=== PATIENT | female | born 1970 | race Caucasian/White ===

== ENCOUNTER 2016-12-13 10:07 | Emergency (ER) | payer OTHER ==
[2016-06-11 10:05] VITALS: BMI 37.1
[~2016-12-13 10:07] MED LIST: CYCLOBENZAPRINE10 MG PO; MOBIC7.5 MG PO; POTASSIUM CITRA5 MEQ PO; SKELAXIN800 MG PO; ULTRAM50 MG PO
== END 2016-12-13 11:15 | disposition home or self-care (01) ==
LOC: D.ER 10:07
DX: J02.0 Streptococcal pharyngitis (principal); M06.9 Rheumatoid arthritis, unspecified

== ENCOUNTER 2016-12-23 09:13 | Emergency (ER) | payer OTHER ==
[2016-06-11 10:05] VITALS: BMI 37.1
== END 2016-12-23 10:05 | disposition home or self-care (01) ==
LOC: D.ER 09:13
DX: J01.90 Acute sinusitis, unspecified (principal)

== ENCOUNTER 2017-05-16 02:34 | Emergency (ER) | payer OTHER, MEDICAID ==
[2016-06-11 10:05] VITALS: BMI 37.1
== END 2017-05-16 03:33 | disposition home or self-care (01) ==
LOC: D.ER 02:34
DX: J02.9 Acute pharyngitis, unspecified (principal)

== ENCOUNTER 2017-05-20 05:55 | Day surgery (SDC) | payer OTHER, MEDICAID ==
[~2017-05-20] VITALS: Ht 152.4 cm; Wt 82.6 kg
[~2017-05-20 05:55] MED LIST changes: +HUMIRA20 MG/0.4 SQ
[2017-05-20 07:20] VITALS: BP 135/87; Ht 152.4 cm; Wt 82.6 kg
[2017-05-20 08:07] LABS: HEMATOCRIT 46.5 % (36.0-48.0); HEMOGLOBIN 15.3 g/dL (12-16); MCH 29.3 pg (26.0-34.0); MCHC 32.9 g/dL (31.0-37.0); MCV 88.9 fL (80.0-100.0); RBC 5.23 10x6/uL (4.00-5.40); RDW 13.7 % (11.5-14.5); WBC 7.7 10x3/uL (4.8-10.8)
--- NOTE | 2017-05-20 13:56 | NUR ---
1350 DC INSTS. REVIEWED VOICED UNDERSTANDING, RELEASED IN WC WITH ESCORT.
--- NOTE | 2017-05-20 13:56 | NUR ---
LE 1345 IV DC'D WITH CATH INTACT.
== END 2017-05-20 13:55 | disposition home or self-care (01) ==
LOC: D.OPS 05:55 → D.PAN 10:15 → D.OPS 13:30 → D.PAN 13:30 → D.OPS 13:55
PROVIDERS: Anesthesiology
DX: M65.311 Trigger thumb, right thumb (principal); M65.321 Trigger finger, right index finger; K21.9 Gastro-esophageal reflux disease without esophagitis; Z01.812 Encounter for preprocedural laboratory examination

== ENCOUNTER → 2017-08-02 | Emergency (ER) | payer OTHER, MEDICAID ==
[2017-05-20 07:20] VITALS: BMI 35.6
== END | disposition home or self-care (01) ==
LOC: D.ER 17:17
DX: M25.572 Pain in left ankle and joints of left foot (principal)

== ENCOUNTER 2017-08-29 19:41 | Emergency (ER) | payer OTHER, MEDICAID ==
[2017-05-20 07:20] VITALS: BMI 35.6
[2017-08-29 20:46] LABS: APPEARANCE CLEAR (CLEAR); BILIRUBIN NEGATIVE (NEGATIVE); COLOR YELLOW (YELLOW); GLUCOSE NEGATIVE (NEGATIVE); KETONE NEGATIVE (NEGATIVE); NITRITE NEGATIVE (NEGATIVE); PROTEIN NEGATIVE (NEGATIVE); SPECIFIC GRAVITY 1.025 (1.005-1.020); UROBILINOGEN NORMAL (NORMAL)
[2017-08-29 20:50] LABS: BACTERIA MODERATE /hpf (NONE SEEN); EPITHELIAL CELLS 0-5 /hpf (0-5); RED CELLS - URINE 0-5 /hpf (0-5)
[2017-08-29 22:28] LABS: BASOPHILS 0.2 % (0-2); EOSINOPHILS 0.8 % (0-7); HEMATOCRIT 40.1 % (36.0-48.0); HEMOGLOBIN 13.5 g/dL (12-16); IMMATURE GRANULOCYTES 0.2 % (0-5); LYMPHOCYTES 40.3 % (15-50); MCH 29.3 pg (26.0-34.0); MCHC 33.7 g/dL (31.0-37.0); MEAN PLATELET VOLUME 10.8 fL (7.4-10.4); MONOCYTES 6.4 % (2-11); NEUTROPHILS 52.1 % (40-80); PLATELET COUNT 237 10x3/uL (130-400); RBC 4.61 10x6/uL (4.00-5.40); RDW 13.3 % (11.5-14.5); WBC 10.2 10x3/uL (4.8-10.8)
[2017-08-29 22:35] LABS: CALC OSMOLALITY 278 mosm/kg (275-300); CALCIUM 8.2 mg/dL (8.5-10.1); CARBON DIOXIDE 27.3 mmol/L (21.0-32.0); CHLORIDE - SERUM 106 mmol/L (98-107); CREATININE - SERUM 0.8 mg/dL (0.6-1.3); GLUCOSE 97 mg/dL (74-106); POTASSIUM - SERUM 3.7 mmol/L (3.5-5.1); SODIUM 139 mmol/L (136-145); UREA NITROGEN 16 mg/dL (7-18); eGFR NON AFRICAN AMERICAN 82 mL/min (90-120)
== END 2017-08-29 23:05 | disposition home or self-care (01) ==
LOC: D.ER 19:41
PROVIDERS: Emergency Medicine; Nurse Practitioner Acute Care
DX: N39.0 Urinary tract infection, site not specified (principal)

== ENCOUNTER 2017-09-16 08:18 | Day surgery (SDC) | payer OTHER, MEDICAID ==
[2017-09-16 08:54] LABS: HEMATOCRIT 43.8 % (36.0-48.0); HEMOGLOBIN 14.7 g/dL (12-16); MCH 29.3 pg (26.0-34.0); MCHC 33.6 g/dL (31.0-37.0); MCV 87.3 fL (80.0-100.0); MEAN PLATELET VOLUME 10.4 fL (7.4-10.4); RBC 5.02 10x6/uL (4.00-5.40); RDW 12.9 % (11.5-14.5); WBC 7.5 10x3/uL (4.8-10.8)
[2017-09-16 09:01] VITALS: BP 142/76; BMI 36.9
[2017-09-16] MEDS ORDERED: HYDROCODONE-APA1 TAB PO (10:25)
--- NOTE | 2017-09-16 12:22 | NUR ---
IV DC WITH CATHER TIP INTACT
--- NOTE | 2017-09-16 15:13 | OP ---
PATIENT NAME: CINTHIA MORALES MEDICAL RECORD: [id number] :72 LOCATION:[facility] ADMISSION DATE: SURGEON: EDER KRISHNA MD DATE OF OPERATION: 09/16/2017 PREOPERATIVE DIAGNOSIS: Carpal tunnel syndrome of the right wrist. POSTOPERATIVE DIAGNOSIS: Carpal tunnel syndrome of the right wrist. PROCEDURE: Right carpal tunnel release. SURGEON: Eder Krishna MD ANESTHESIA: General. INTRAOPERATIVE COMPLICATIONS: None. SUMMARY OF PATHOLOGIC FINDINGS: The patient had a very tight transverse carpal ligament consistent with the preoperative diagnosis. OPERATIVE SUMMARY IN DETAIL: After obtaining the appropriate preoperative orthopedic surgery consent as well as anesthetic consultation, evaluation and clearance, the patient was brought to the operating room and placed on the operating table in supine position. After general laryngeal mask airway was administered, tourniquet was placed about the proximal aspect of the right upper extremity. Right upper extremity was then prepped and draped in a routine sterile fashion. The arm was elevated and exsanguinated, tourniquet inflated to 250 mmHg. Routine mid palmar incision was made in line with the fourth metacarpal. This was taken down to the level of the transverse carpal ligament, which was identified. A small incision was made in the transverse carpal ligament. The median nerve was identified and it was then covered with the [place] elevator. At this point, the entire transverse carpal ligament was incised under direct visualization while both looking and protecting the median nerve. Having completed this, wound was then irrigated and closed with 4-0 Prolene in a combination of simple and mattress stitches. The area was locally infiltrated with 0.25% Marcaine and lidocaine mixture, both plain. Having completed this, sterile dressings were applied. Tourniquet was deflated. The patient was awakened and taken to the recovery room in stable condition. All final needle and sponge counts were correct. TRANSINT:[id number] Voice Confirmation ID: [id number] DOCUMENT ID: [id number] EDER KRISHNA MD at 1513 CC: [id number] DICTATION DATE: 09/16/17 1024 FACILITY SERVICE ASSOCIATE: 09/16/17 1046 [facility] 09/16/17 [place] [address]
== END 2017-09-16 12:34 | disposition home or self-care (01) ==
LOC: D.OPS 08:18 → D.PAN 10:30 → D.OPS 10:30 → D.PAN 10:45 → D.OPS 12:20
PROVIDERS: Anesthesiology
DX: G56.01 Carpal tunnel syndrome, right upper limb (principal); K21.9 Gastro-esophageal reflux disease without esophagitis; E66.9 Obesity, unspecified; Z01.812 Encounter for preprocedural laboratory examination

== ENCOUNTER 2017-11-17 11:22 | Emergency (ER) | payer OTHER, MEDICAID ==
[~2017-11-17 11:22] MED LIST changes: +HYDROCODONE-APA1 TAB PO
== END 2017-11-17 13:46 | disposition home or self-care (01) ==
LOC: D.ER 11:22
DX: J02.9 Acute pharyngitis, unspecified (principal)

== ENCOUNTER 2017-11-25 06:10 | Emergency (ER) | payer OTHER, MEDICAID | END 2017-11-25 07:41 | disposition home or self-care (01) | LOC: D.ER 06:10 | DX: J06.9 Acute upper respiratory infection, unspecified (principal) ==

== ENCOUNTER 2018-02-21 21:18 | Emergency (ER) | payer MEDICAID ==
[2018-02-21 22:26] LABS: BASOPHILS 0.2 % (0-2); EOSINOPHILS 0.5 % (0-7); HEMATOCRIT 42.6 % (36.0-48.0); HEMOGLOBIN 14.4 g/dL (12-16); IMMATURE GRANULOCYTES 0.2 % (0-5); LYMPHOCYTES 31.2 % (15-50); MCHC 33.8 g/dL (31.0-37.0); MCV 85.9 fL (80.0-100.0); MONOCYTES 6.1 % (2-11); NEUTROPHILS 61.8 % (40-80); PLATELET COUNT 243 10x3/uL (130-400); RBC 4.96 10x6/uL (4.00-5.40); RDW 12.9 % (11.5-14.5); WBC 12.7 10x3/uL (4.8-10.8)
[2018-02-21 22:32] LABS: ALBUMIN 3.6 g/dL (3.4-5.0); ALKALINE PHOSPHATASE 91 U/L (46-116); ALT (SGPT) 37 U/L (10-68); BILIRUBIN - TOTAL 0.31 mg/dL (0.2-1.3); CALC OSMOLALITY 274 mosm/kg (275-300); CALCIUM 8.7 mg/dL (8.5-10.1); CARBON DIOXIDE 26.7 mmol/L (21.0-32.0); CHLORIDE - SERUM 102 mmol/L (98-107); CREATININE - SERUM 0.8 mg/dL (0.6-1.3); GLUCOSE 105 mg/dL (74-106); POTASSIUM - SERUM 3.8 mmol/L (3.5-5.1); PROTEIN - SERUM 7.7 g/dL (6.4-8.2); SODIUM 137 mmol/L (136-145); UREA NITROGEN 15 mg/dL (7-18); eGFR NON AFRICAN AMERICAN 82 mL/min (90-120)
[2018-02-21 22:43] LABS: CKMB 0.3 U/L (0.0-3.6); CREATINE KINASE 46 UL (21-215)
[2018-02-21 22:47] LABS: TROPONIN-I < 0.017 ng/mL (0.000-0.060)
[2018-02-21 23:38] LABS: APPEARANCE CLEAR (CLEAR); BILIRUBIN NEGATIVE (NEGATIVE); COLOR YELLOW (YELLOW); GLUCOSE NEGATIVE (NEGATIVE); KETONE NEGATIVE (NEGATIVE); NITRITE NEGATIVE (NEGATIVE); PROTEIN NEGATIVE (NEGATIVE); UROBILINOGEN NORMAL (NORMAL)
[2018-02-21 23:39] LABS: EPITHELIAL CELLS 0-5 /hpf (0-5); RED CELLS - URINE 0-5 /hpf (0-5); WHITE CELLS - URINE 0-5 /hpf (0-5)
[2018-02-21 23:40] LABS: BACTERIA FEW /hpf (NONE SEEN)
== END 2018-02-21 23:59 | disposition home or self-care (01) ==
LOC: D.ER 21:18
PROVIDERS: Family Medicine; Physician Assistant Medical
DX: R07.89 Other chest pain (principal); N39.0 Urinary tract infection, site not specified

== ENCOUNTER → 2018-03-04 09:04 | Outpatient (CLI) | payer MEDICAID, OTHER ==
--- NOTE | ~2018-03-04 | EC ---
PATIENT:CINTHIA MORALES DATE OF SERVICE: 03/04/18 SEX: F MEDICAL RECORD: [id number] DATE OF : 72 [facility] AGE OF PATIENT: 47 ADMISSION DATE: 03/04/18 REFERRING PHYSICIAN: INTERPRETING PHYSICIAN: TRAVIS PULLIAM MD ECHOCARDIOGRAM REPORT ECHO CHARGES 4 ECHO COMPLETE Date: 03/04 CLINICAL DIAGNOSIS: CHEST PAIN ECHOCARDIOGRAPHIC MEASUREMENTS (adult normal given) AC root (d.<3.7cm) 3.0 cm LV Septum d (<1.2 cm> 1.4 cm Valve Excursion 1.8 cm LV Septum (systole) 1.6 cm Left Atria (s.<4.0cm> 3.7 cm LVPW d(<1.2cm) 1.4 cm RV (d.<2.3cm) 2.7 cm LVPW (sytole) 1.6 cm LV diastole(<5.6CM) 4.3 cm MV E-F(>70mm/sec) cm LV systole 3.1 cm LVOT Diameter 1.8 cm MV exc.(>10mm) 1.8 cm Est.ejection fraction (50-75%) % DOPPLER: LVIT cm/sec A 66.0 cm/sec E 82.0 cm/sec LA cm/sec RVSP 34 mmHg LVOT 104 cm/sec AOP1/2T m/s Asc. Ao 126 cm/sec RVOT 80 cm/sec RA cm/sec PA 98 cm/sec AV Gradient Peak 6.33 mmHg AV Mean 3.46 mmHg AV Area 1.9 cm MV Gradient Peak 3.88 mmHg MV Mean 1.64 mmHg MV Area cm COMMENTS: Marketing Communications Coordinator: 2 GUY HAYWOOD Welder Oxyhydrogen: 4 Dr. Pulliam TAPE# PACS Pericardial Effusion N DATE OF SERVICE: PROCEDURE: Transthoracic echocardiogram. FINDINGS: 1. Left ventricle is normal size, normal function. Inflow characteristics are normal. There are no regional wall motion abnormalities. Ejection fraction is 60%. 2. The left atrium is normal shape, normal size, and normal function. 3. The aortic valve is a trileaflet structure and normal. ECHOCARDIOGRAM REPORT [id number] CINTHIA MORALES 4. The mitral valve is normal structurally, has [id number] mitral regurgitation. 5. The tricuspid valve has mild tricuspid regurgitation. Normal structurally. 6. The pericardium is normal. 7. The RVSP is normal. 8. The right ventricle and right atrium are normal size, normal shape, normal structure, and normal function. CONCLUSIONS: This is a normal echocardiogram for the patient's stated age. TRANSINT:[id number] Voice Confirmation ID: [id number] DOCUMENT ID: [id number] TRAVIS PULLIAM MD at 0741 CC: [id number] DICTATION DATE: 03/14/18 1045 SUPERVISOR RESPIRATORY: 03/14/18 1224 DEP CLI 03/04/18 [address] [place] [address]
== END | disposition home or self-care (01) ==
LOC: D.ECHO 09:04
DX: R07.9 Chest pain, unspecified (principal)

== ENCOUNTER 2018-03-17 06:36 | Outpatient (CLI) | payer MEDICAID, OTHER ==
[~2018-03-17] VITALS: Ht 152.4 cm; Wt 88.2 kg
--- NOTE | ~2018-03-17 | HEMODYNAMI ---
PATIENT:CINTHIA MORALES MEDICAL RECORD: [id number] : 72 LOCATION:D.CAT ADMISSION DATE: 03/17/18 Generatedon:03/17/20189:41 Patient name: CINTHIA MORALES Patient #: [id number] SSN: : 1970 Date of study: 03/17/2018 Page: Of Hemodynamic Procedure Report Patient Data Patient Demographics Procedure consent was obtained First Name: CINTHIA Gender: Female Last Name: CARMEN : 1970 [facility] Initial: J Age: 47 year(s) Patient #: [id number] Race: Unknown Additional ID: [id number] Contact details Address: [address] [place] [address] State: [place] City: [facility] Zip code: [address] Admission Admission Data Admission Date: 03/17/2018 Admission Time: 6:36 Height (in.): 60 BSA: 1.87 (m2) Height (cm.): 152.4 BMI: 39.06 (kg/m2) Weight (lbs.): 200 Weight (kg.): 90.72 Lab Results Lab Result Date: 03/17/2018 Lab Result Time: 0:00 Biochemistry Name Units Result Min Max BUN mg/dl 11 --(-*--)-- 7 18 Creatinine mg/dl 0.6 --(*---)-- 0.6 1.3 CBC Name Units Result Min Max Hemoglobin g/dl 14.5 --(*---)-- 13.5 17.5 Procedure Procedure Types Cath Procedure Diagnostic Procedure C [facility] w/Coronaries Sedation Charges Moderate Sedation up to 15 minutes Procedure Description Procedure Date Procedure Date: 03/17/2018 Procedure Start Time: 9:27 Procedure End Time: 9:37 Procedure Staff Name Function Addison Acosta MD Performing Physician Bessy Lozada RT Monitor Rojelio Sofia RN Nurse Merlyn Glasgow RT Scrub Procedure Data Cath Procedure Fluoroscopy Diagnostic fluoroscopy Total fluoroscopy Time: 2.3 time: 2.3 min min Diagnostic fluoroscopy Total fluoroscopy dose: 812 dose: 812 mGy mGy Contrast Material Contrast Material Type Amount (ml) Isovue 300 62 Entry Location Entry Primary Successful Side Size Upsize Upsize Entry Closure Wolfe ccessful Closure Location (Fr) 1 (Fr) 2 (Fr) Remarks Device Remarks Radial Right 6 Fr Mechanical TR artery Short Compression Estimated blood loss: 10 ml Diagnostic catheters Device Type Used For End Catheter Placement DIAGNOSTIC Raritan 110cm 5 Procedure Fr catheter ([id number]) Procedure Complications No complications Procedure Medications Medication Administration Route Dosage Oxygen etCO2 Nasal cannula 2 l/min Heparin Flush Bag added to field 2 bags (1000units/500ml NS) 0.9% NaCl I.V. 100 ml/hr Radial Cocktail added to field 1 syringe (Verapomil 2mg/Nitro 400mcg/Heparin 1500units) Fentanyl I.V. 50 mcg Versed I.V. 1 mg Fentanyl I.V. 50 mcg Versed I.V. 1 mg Radial Cocktail I.A. 1 syringe (Verapomil 2mg/Nitro 400mcg/Heparin 1500units) Hemodynamics Rest BSA: 1.87 (m2) HGB: 14.5 (g/dl) O2 Consumption: Estimated: 185.02 (ml/min) O2 Co nsumption indexed: Estimated:98.94 (ml/min/m) Heart Rate: 69 (bpm) Pressure Samples Time Site Value (mmHg) Purpose Heart Use Rate(bpm) 9:33 LV 152/12,15 Snapshot 86 9:33 LV 197/58,39 EDP 88 Snapshots Pre Cath Intra NCS Post Cath Vital Signs Time Heart Resp SPO2 etCO2 NIBP (mmHg) Rhythm Pain Sedation Rate (ipm) (%) (mmHg) Status Level (bpm) 9:09:30 68 19 98 0 152/87(134) NSR 0 (11) 10(A) , No pain 9:13:46 72 17 97 36.6 154/98(119) NSR 0 (11) 10(A) , No pain 9:18:00 75 16 94 39.6 143/93(122) NSR 0 (11) 10(A) , No pain 9:22:14 77 16 95 41.1 145/91(105) NSR 0 (11) 9(A) , No pain 9:26:34 77 17 95 42.6 134/87(107) NSR 0 (11) 9(A) , No pain 9:30:48 90 15 93 40.3 138/90(115) NSR 0 (11) 9(A) , No pain 9:35:04 91 15 93 40.3 155/89(122) NSR 0 (11) 9(A) , No pain 9:39:20 76 16 97 40.3 156/87(125) NSR 0 (11) 9(A) , No pain Medications Time Medication Route Dose Verified Delivered Reason Notes Effectiveness by by 9:10:35 Oxygen etCO2 2 l/min Addison Rojelio Per Nasal Dave Sofia RN physician cannula 9:10:42 Heparin Flush added 2 bags Addison Rojelio used for Bag to Dave Sofia RN procedure (1000units/500ml field FU NS) 9:10:49 0.9% NaCl I.V. 100 Addison Rojelio Per ml/hr Dave Sofia RN physician MD 9:10:57 Radial Cocktail added 1 Addison Rojelio used for (Verapomil to syringe Dave Sofia RN procedure 2mg/Nitro field FU 400mcg/Heparin 1500units) 9:19:27 Fentanyl I.V. 50 mcg Addison Rojelio for sedation Dave Sofia RN, MD 9:19:34 Versed I.V. 1 mg Addison Rojelio for sedation Dave Sofia RN, MD 9:21:54 Fentanyl I.V. 50 mcg Addison Rojelio for sedation Dave Sofia RN, MD 9:21:58 Versed I.V. 1 mg Addison Rojelio for sedation Dave Sofia RN, MD 9:28:18 Radial Cocktail I.A. 1 Addison Addison for (Verapomil syringe Dave Acosta MD vasodilation 2mg/Enrique FU 400mcg/Heparin 1500units) Procedure Log Time Note 8:51:07 Merlyn Glasgow RT(R) sent for patient. Start room use. 8:57:44 Patient Height : 60 inches 8:57:48 Patient Weight : 200 lbs 9:00:31 Lab Result : BUN 11 mg/dl 9:00:31 Lab Result : Creatinine 0.6 mg/dl 9:00:31 Lab Result : Hemoglobin 14.5 g/dl 9:01:05 Diagnostic Cath status Elective 9:01:08 Time tracking: Regular hours (M-F 7:00 - 5:00) 9:01:13 Plan of Care:Hemodynamics will remain stable., Cardiac rhythm will remain stable., Comfort level will be maintained., Respiratory function will remain adequate., Patient/ family verbilizes understanding of procedure., Procedure tolerated without complication., Recovers from procedure without complications.. 9:01:22 Patient received from Pre/Post Procedure Room to [facility] 2 Alert and oriented. Tansferred to table in Supine position. 9:01:24 Warm blankets applied, and nisa hugger turned on for patient comfort. 9:04:49 Correct patient and procedure confirmed by team. 9:04:50 Signed procedure consent form obtained from patient. 9:04:51 ECG and BP/O2 sat monitors applied to patient. 9:08:09 Vital chart was started 9:08:22 Baseline sample Acquired. 9:08:27 Rhythm: sinus rhythm 9:08:28 Full Disclosure recording started 9:08:31 H&P Date Dictated: 03/17/2018 Within 30 days and on chart., H&P Addendum completed by physician on day of procedure. (MUST COMPLETE FOR ALL OUTPATIENTS). 9:08:33 Pre-procedure instructions explained to patient. 9:08:33 Pre-op teaching completed and patient verbalized understanding. 9:08:35 Family in patients room. 9:08:36 Patient NPO since Midnight. 9:08:40 Is the patient allergic to Iodine/contrast media? No. 9:08:41 Was the patient premedicated? No 9:08:42 Is patient on blood thinner?Yes 9:08:47 ACC The patient was administered the following blood thiners within the last 24 hours: ACCPlavix 9:08:49 Patient diabetic? No. 9:08:51 Previous problem with sedation/anesthesia? No ? 9:08:53 Snore? Yes 9:08:54 Sleep apnea? No 9:08:54 Deviated septum? No 9:08:55 Opens mouth fully? Yes 9:08:56 Sticks out tongue? Yes 9:08:58 Airway obstruction? No ? 9:09:03 Dentures? No ? 9:09:06 Pre procedure: right dorsailis pedis pulse 2+ Normal; easily identifiable; not easily obliterated 9:09:08 Pre procedure: left dorsailis pedis pulse 2+ Normal; easily identifiable; not easily obliterated 9:09:10 Patient pain scale 0/10 ?. 9:09:15 IV patent on arrival in left forearm with 0.9% NaCl at [facility]. 9:09:17 Lab results completed and on chart. 9:09:21 Right Radial & Right Groin area was prepped with chlora-prep and draped in sterile fashion 9:: Alarms reviewed by R. N. 9:: Sharps counted by scrub and verified by R.N. 9:10:35 Oxygen 2 l/min etCO2 Nasal cannula was administered by Rojelio Sofia RN; Per physician; 9:10:41 Physician paged 9:10:42 Heparin Flush Bag (1000units/500ml NS) 2 bags added to field was administered by Rojelio Sofia RN; used for procedure; 9:10:49 0.9% NaCl 100 ml/hr I.V. was administered by Rojelio Sofia RN; Per physician; 9:10:57 Radial Cocktail (Verapomil 2mg/Nitro 400mcg/Heparin 1500units) 1 syringe added to field was administered by Rojelio Sofia RN; used for procedure; 9:18:36 Physician arrived 9:18:36 --------ALL STOP TIME OUT------ 9:18:37 Final Timeout: patient, procedure, and site verified with staff and physician. All members of the team are in agreement. 9:18:40 Right Radial & Right Groin site verified by team. 9:18:48 Sedation plan: IV Moderate Sedation Medication:Versed, Fentanyl 9:18:53 Baseline sample Acquired. 9:19:27 Fentanyl 50 mcg I.V. was administered by Rojelio Sofia RN; for sedation; 9:19:34 Versed 1 mg I.V. was administered by Rojelio Sofia RN; for sedation; 9:21:54 Fentanyl 50 mcg I.V. was administered by Rojelio Sofia RN; for sedation; 9:21:58 Versed 1 mg I.V. was administered by Rojelio Sofia RN; for sedation; 9:24:30 Procedure started. 9:24:44 Use device set Femoral Dx 9:24:45 ACIST Syringe (60377) opened to sterile field. 9:24:46 Bag Decanter () opened to sterile field. 9:24:47 Medline Cath Pack ([id number]) opened to sterile field. 9:24:48 DIAGNOSTIC WIRE .035 260cm J wire (962605) opened to sterile field. 9:24:49 ACIST Hand Control (54960) opened to sterile field. 9:24:49 ACIST Manifold (34583) opened to sterile field. 9:26:05 Zero performed for pressure channel P1 9:27:52 Local anesthetic to right radial artery with Lidocaine 2% by Addison Acosta MD.INITIAL ACCESS ONLY 9:28:02 A 6 Fr Short sheath was inserted into the Right Radial artery 9:28:18 Radial Cocktail (Verapomil 2mg/Nitro 400mcg/Heparin 1500units) 1 syringe I.A. was administered by Addison Acosta MD; for vasodilation; 9:28:30 A DIAGNOSTIC Raritan 110cm 5 Fr catheter (852787) was advanced over the wire and used for Procedure. 9:31:20 LCA angiography performed. 9:33:41 LV gram done using MENESES 9:33:47 RCA angiography performed. 9:34:36 Catheter removed. 9:34:44 TR BAND Standard ([id number]) opened to sterile field. 9:35:13 Sheath removed intact; hemostasis achieved with Mechanical Compression to the Right Radial artery. 9:35:16 Procedure ended.(Physican Out) 9:35:26 Fluoroscopy time 02.30 minutes. 9:35:30 Fluoroscopy dose: 812 mGy 9:35:30 Flurop Dose total: 812 9:35:34 Contrast amount:Isovue 300 62ml. 9:35:36 Sharps counted by scrub and verified by R.N. 9:35:39 TR band inflated with 13cc of air. 9:35:43 Insertion/operative site no bleeding no hematoma. 9:35:47 Post Procedure Pulses reassessed and unchanged 9:35:51 Post-procedure physical assessment completed. ASA score P 2 - A patient with mild systemic disease as per Addison Acosta MD. 9:35:57 Post procedure rhythm: unchanged. 9:36:00 Estimated blood loss: 10 ml 9:36:09 Post procedure instruction explained to patient.Patient verbalizes understanding. 9:36:32 Procedure type changed to Cath procedure, Diagnostic procedure, LHC, LHC w/Coronaries, Sedation Charges, Moderate Sedation up to 15 minutes 9:36:33 Procedure and supply charges have been captured, reviewed, submitted and are correct. 9:37:36 Procedure Complication : No complications 9:37:40 Vital chart was stopped 9:37:45 Report given to Pre/Post Procedure Room. 9:37:49 Patient transfered to Pre/Post Procedure Room with Stretcher. 9:37:51 Procedure ended. 9:37:51 Full Disclosure recording stopped 9:38:00 End room use (Document Last) Device Usage Item Name Manufacture Quantity Catalog Hospital Part Current Minimal L ot# / Number Charge Number Stock Stock Serial# Code ACIST Acist 1 53103 612816 474742 285500 20 Syringe Medical (38394) Systems Inc Bag Microtek 1 2001S 203040 68862 141423 5 Decanter Medical Inc. () Medline Cardinal 1 [id number] 627530 57663 303385 5 Cath Sinnet ([id number]) DIAGNOSTIC St Sivakumar 1 517320 546179 238597 779133 30 WIRE .035 260cm J wire (602839) ACIST Hand Acist 1 57247 212228 503673 593695 5 Control Medical (03256) Systems Inc ACIST Acist 1 06361 081387 535509 723153 5 Manifold Medical (42334) Systems Inc DIAGNOSTIC Terumo 1 40-0283 875665 359542 855817 5 Raritan 110cm 5 Fr catheter (694417) TR BAND Terumo 1 [id number] 647961 765293 176859 40 Standard ([id number]) Signature Audit Noble Stage Time Signature Unsigned Intra-Procedure 03/17/2018 Bessy Lozada 9:41:03 AM RT(R) Signatures Monitor : Bessy Lozada Signature : RT Date : Time : [address] [place] [address]
[2018-03-17 07:32] VITALS: BP 142/89; Ht 152.4 cm; Wt 88.2 kg
[2018-03-17 07:49] LABS: BASOPHILS 0.3 % (0-2); EOSINOPHILS 0.6 % (0-7); HEMATOCRIT 42.4 % (36.0-48.0); HEMOGLOBIN 14.5 g/dL (12-16); IMMATURE GRANULOCYTES 0.3 % (0-5); LYMPHOCYTES 32.2 % (15-50); MCH 29.2 pg (26.0-34.0); MCHC 34.2 g/dL (31.0-37.0); MCV 85.3 fL (80.0-100.0); MEAN PLATELET VOLUME 10.6 fL (7.4-10.4); NEUTROPHILS 58.6 % (40-80); PLATELET COUNT 231 10x3/uL (130-400); RBC 4.97 10x6/uL (4.00-5.40); RDW 13.1 % (11.5-14.5); WBC 7.8 10x3/uL (4.8-10.8)
[2018-03-17 08:04] LABS: CALC OSMOLALITY 274 mosm/kg (275-300); CALCIUM 8.4 mg/dL (8.5-10.1); CARBON DIOXIDE 23.8 mmol/L (21.0-32.0); CHLORIDE - SERUM 103 mmol/L (98-107); CREATININE - SERUM 0.6 mg/dL (0.6-1.3); GLUCOSE 100 mg/dL (74-106); POTASSIUM - SERUM 4.1 mmol/L (3.5-5.1); SODIUM 138 mmol/L (136-145); UREA NITROGEN 11 mg/dL (7-18); eGFR NON AFRICAN AMERICAN > 90 mL/min (90-120)
== END 2018-03-17 12:00 | disposition home or self-care (01) ==
LOC: D.CATH 06:36
PROVIDERS: Internal Medicine Cardiovascular Disease
DX: I25.10 Atherosclerotic heart disease of native coronary artery without angina pectoris (principal); Z01.812 Encounter for preprocedural laboratory examination

== ENCOUNTER → 2018-05-09 22:07 | Outpatient (CLI) | payer MEDICAID, OTHER ==
[2018-03-17 07:32] VITALS: BMI 37.9
[~2018-05-09 22:07] MED LIST changes: +NORCO 7.5/325 T1 TA1 PO
[2018-05-09 22:39] LABS: CHOL - HDL RATIO 8.3 ratio (2.3-4.1); LDL-HDL RATIO 5.2 ratio (1.5-3.5)
== END | disposition home or self-care (01) ==
LOC: D.LABREF 22:07
PROVIDERS: Internal Medicine Cardiovascular Disease
DX: E78.5 Hyperlipidemia, unspecified (principal)

== ENCOUNTER 2018-05-10 12:19 | Emergency (ER) | payer MEDICAID, OTHER ==
[~2018-05-10] VITALS: Ht 152.4 cm; Wt 85.9 kg
[~2018-05-10 12:19] MED LIST changes: -NORCO 7.5/325 T1 TA1 PO
[2018-05-10 12:25] VITALS: Ht 152.4 cm; Wt 85.9 kg
[2018-05-10] MEDS ORDERED: NORCO 7.5/325 T1 TA1 PO (16:03)
[2018-05-10] MEDS ORDERED: CYCLOBENZAPRINE10 MG PO (16:03)
[2018-05-10 16:31] VITALS: BP 128/71
== END 2018-05-10 16:28 | disposition home or self-care (01) ==
LOC: D.ER 12:19
DX: R51 Headache (principal)

== ENCOUNTER → 2018-06-07 16:29 | Outpatient (CLI) | payer MEDICAID, OTHER ==
[2018-05-10 12:25] VITALS: BMI 36.9
[~2018-06-07 16:29] MED LIST changes: +ALTACE2.5 MG PO; +ENBREL50 MG/ML SQ; +LIPITOR20 MG PO; +NORCO 7.5/325 T1 TA1 PO
[2018-06-07 17:23] LABS: CHOL - HDL RATIO 7.4 ratio (2.3-4.1); LDL-HDL RATIO 5.2 ratio (1.5-3.5)
== END | disposition home or self-care (01) ==
LOC: D.LABREF 16:29
PROVIDERS: Internal Medicine Cardiovascular Disease
DX: E78.5 Hyperlipidemia, unspecified (principal)

== ENCOUNTER → 2018-06-28 19:55 | Outpatient (CLI) | payer MEDICAID, OTHER ==
[2018-05-10 12:25] VITALS: BMI 36.9
== END | disposition home or self-care (01) ==
LOC: D.MAMMO 06-22 15:30
DX: Z12.31 Encounter for screening mammogram for malignant neoplasm of breast (principal)

== ENCOUNTER 2018-07-22 07:45 | Day surgery (SDC) | payer MEDICAID, OTHER ==
[2018-07-21 09:22] LABS: BASOPHILS 0.3 % (0-2); EOSINOPHILS 0.1 % (0-7); HEMOGLOBIN 14.2 g/dL (12-16); IMMATURE GRANULOCYTES 0.1 % (0-5); LYMPHOCYTES 32.5 % (15-50); MCH 29.2 pg (26.0-34.0); MCHC 33.8 g/dL (31.0-37.0); MCV 86.2 fL (80.0-100.0); MEAN PLATELET VOLUME 10.4 fL (7.4-10.4); MONOCYTES 7.2 % (2-11); NEUTROPHILS 59.8 % (40-80); PLATELET COUNT 222 10x3/uL (130-400); RBC 4.87 10x6/uL (4.00-5.40); RDW 13.5 % (11.5-14.5); WBC 7.6 10x3/uL (4.8-10.8)
[2018-07-21 09:34] LABS: CALC OSMOLALITY 275 mosm/kg (275-300); CALCIUM 8.5 mg/dL (8.5-10.1); CARBON DIOXIDE 28.7 mmol/L (21.0-32.0); CHLORIDE - SERUM 103 mmol/L (98-107); CREATININE - SERUM 0.7 mg/dL (0.6-1.3); GLUCOSE 97 mg/dL (74-106); POTASSIUM - SERUM 4.7 mmol/L (3.5-5.1); SODIUM 138 mmol/L (136-145); UREA NITROGEN 13 mg/dL (7-18); eGFR NON AFRICAN AMERICAN > 90 mL/min (90-120)
[~2018-07-22] VITALS: Ht 152.4 cm; Wt 89.8 kg
--- NOTE | ~2018-07-22 | OP ---
PATIENT NAME: CINTHIA MORALES MEDICAL RECORD: [id number] :72 LOCATION:D.OPS ADMISSION DATE: SURGEON: HELADIO CMAPOS MD DATE OF OPERATION: 07/22/2018 PREOPERATIVE DIAGNOSES: 1. Left neck mass. 2. Hypercholesterolemia. 3. Hypertension. POSTOPERATIVE DIAGNOSES: 1. Left neck mass. 2. Hypercholesterolemia. 3. Hypertension. PROCEDURE: Excision of left neck mass (4 cm likely lipoma). SURGEON: Heladio Campos MD REPORT OF PROCEDURE: The patient's left neck was prepped and draped in sterile fashion. An oblique incision was made overlying the fatty mass. Electrocautery was used to dissect through the subcutaneous tissues. We immediately encountered this fatty collection of tissue. I tried in all planes to try and figure out if there was a true lipoma present, but appeared to just be a large fat pad. I began taking it out in pieces and trying to smooth out the tissue. There were some vascular structures present within it and these were ligated with silk ties. As we continued down, the fat pad continued deep into the patient's neck and towards the chest and shoulder. As we dissected, there was irritation to the nervous tissue and I was concerned we may be getting close to the brachial plexus. At this point, I just shaved off the remaining top side of the fatty tissue and sent it off for permanent specimen. I inspected the wound and assured there was no sign of any active bleeding. The wound was then irrigated out thoroughly with normal saline. The subcutaneous tissues were then reapproximated with interrupted 3-0 Vicryl and the skin was closed with running subcutaneous 5-0 Monocryl. A 10 mL of 0.25% Marcaine with epinephrine were infused into the surrounding tissues and the wound was dressed appropriately. COMPLICATIONS: None. CONDITION: Stable. ANESTHESIA: General endotracheal and local. BLOOD LOSS: Minimal. TRANSINT:[id number] Voice Confirmation ID: [id number] DOCUMENT ID: [id number] OPERATIVE REPORT [id number] ANTHONY MORALESEN Erwin HELADIO CAMPOS MD at 2258 CC: RAMILA LUCERO [id number] DICTATION DATE: 07/22/18 1043 RECYCLABLE MATERIALS COLLECTOR: 07/22/18 1049 [facility] 07/22/[address] [address]
[2018-07-22 08:19] VITALS: BP 130/83; Ht 152.4 cm; Wt 89.8 kg
[2018-07-22] MEDS ORDERED: HYDROCODONE-APA1 TAB PO (10:34)
== END 2018-07-22 12:35 | disposition home or self-care (01) ==
LOC: D.OPS 07:45 → D.PAN 10:00 → D.OPS 12:35 → D.PAN 14:00
PROVIDERS: Surgery
DX: D17.0 Benign lipomatous neoplasm of skin and subcutaneous tissue of head, face and neck (principal); Z01.812 Encounter for preprocedural laboratory examination; E78.00 Pure hypercholesterolemia, unspecified; I10 Essential (primary) hypertension

== ENCOUNTER → 2018-11-18 08:36 | Outpatient (CLI) | payer MEDICAID, OTHER ==
[2018-07-22 08:19] VITALS: BMI 38.7
[2018-11-18 09:12] LABS: ALBUMIN 3.2 g/dL (3.4-5.0); BILIRUBIN - DIRECT 0.1 mg/dL (0.00-0.30); BILIRUBIN - INDIRECT 0.12 mg/dL (0.00-1.00); BILIRUBIN - TOTAL 0.22 mg/dL (0.2-1.3); PROTEIN - SERUM 7.2 g/dL (6.4-8.2)
== END | disposition home or self-care (01) ==
LOC: D.LAB 08:15 → D.US 08:30 → D.LAB 08:36 → D.NM 09:00
PROVIDERS: Internal Medicine Gastroenterology
DX: R11.2 Nausea with vomiting, unspecified (principal); R10.9 Unspecified abdominal pain

== ENCOUNTER 2019-06-11 13:42 | Emergency (ER) | payer OTHER ==
[~2019-06-11] VITALS: Ht 152.4 cm; Wt 95.9 kg
[2019-06-11 13:44] VITALS: Ht 152.4 cm; Wt 95.9 kg
[2019-06-11 14:10] LABS: BASOPHILS 0.1 % (0-2); EOSINOPHILS 0.5 % (0-7); HEMATOCRIT 41.6 % (36.0-48.0); HEMOGLOBIN 14.2 g/dL (12-16); IMMATURE GRANULOCYTES 0.2 % (0-5); LYMPHOCYTES 22.4 % (15-50); MCH 28.9 pg (26.0-34.0); MCHC 34.1 g/dL (31.0-37.0); MCV 84.7 fL (80.0-100.0); MEAN PLATELET VOLUME 10.1 fL (7.4-10.4); MONOCYTES 5.9 % (2-11); NEUTROPHILS 70.9 % (40-80); RBC 4.91 10x6/uL (4.00-5.40); RDW 13.4 % (11.5-14.5); WBC 8.3 10x3/uL (4.8-10.8)
[2019-06-11 14:14] LABS: PLATELET COUNT 280 10x3/uL (130-400)
[2019-06-11 14:21] LABS: APPEARANCE CLEAR (CLEAR); BILIRUBIN NEGATIVE (NEGATIVE); COLOR YELLOW (YELLOW); GLUCOSE NEGATIVE (NEGATIVE); KETONE NEGATIVE (NEGATIVE); NITRITE NEGATIVE (NEGATIVE); PROTEIN TRACE mg/dL (NEGATIVE); SPECIFIC GRAVITY 1.025 (1.005-1.020); UROBILINOGEN NORMAL (NORMAL)
[2019-06-11 14:22] LABS: RED CELLS - URINE 0-5 /hpf (0-5); WHITE CELLS - URINE 0-5 /hpf (0-5)
[2019-06-11 14:23] LABS: BACTERIA MODERATE /hpf (NONE SEEN)
[2019-06-11 16:17] LABS: ALBUMIN 3.2 g/dL (3.4-5.0); ALKALINE PHOSPHATASE 91 U/L (46-116); ALT (SGPT) 49 U/L (10-68); BILIRUBIN - TOTAL 0.32 mg/dL (0.2-1.3); CALC OSMOLALITY 280 mosm/kg (275-300); CALCIUM 8.7 mg/dL (8.5-10.1); CARBON DIOXIDE 26.9 mmol/L (21.0-32.0); CHLORIDE - SERUM 104 mmol/L (98-107); CREATININE - SERUM 0.8 mg/dL (0.6-1.3); POTASSIUM - SERUM 3.4 mmol/L (3.5-5.1); PROTEIN - SERUM 6.7 g/dL (6.4-8.2); SODIUM 139 mmol/L (136-145); UREA NITROGEN 10 mg/dL (7-18); eGFR NON AFRICAN AMERICAN 81 mL/min (90-120)
[2019-06-11 16:21] LABS: GLUCOSE 165 mg/dL (74-106)
[2019-06-11 16:25] LABS: AMYLASE - SERUM 31 U/L (25-115); LIPASE 149 U/L (73-393)
[2019-06-11 16:28] LABS: TROPONIN-I < 0.017 ng/mL (0.000-0.060)
[2019-06-11] MEDS ORDERED: TORADOL10 MG PO (16:52)
[2019-06-11] MEDS ORDERED: ZOFRAN8 MG PO (16:52)
[2019-06-11 17:36] VITALS: BP 141/81
== END 2019-06-11 17:37 | disposition home or self-care (01) ==
LOC: D.ER 13:42
PROVIDERS: Family Medicine
DX: R10.11 Right upper quadrant pain (principal)

== ENCOUNTER 2019-06-22 05:53 | Day surgery (SDC) | payer OTHER ==
[2019-06-21 14:50] LABS: HEMATOCRIT 41.6 % (36.0-48.0); HEMOGLOBIN 13.9 g/dL (12-16); MCH 28.3 pg (26.0-34.0); MCHC 33.4 g/dL (31.0-37.0); MCV 84.7 fL (80.0-100.0); MEAN PLATELET VOLUME 10.7 fL (7.4-10.4); RBC 4.91 10x6/uL (4.00-5.40); RDW 13.4 % (11.5-14.5); WBC 8.3 10x3/uL (4.8-10.8)
[2019-06-21 16:48] LABS: CALC OSMOLALITY 274 mosm/kg (275-300); CALCIUM 8.5 mg/dL (8.5-10.1); CHLORIDE - SERUM 102 mmol/L (98-107); CREATININE - SERUM 0.5 mg/dL (0.6-1.3); POTASSIUM - SERUM 3.7 mmol/L (3.5-5.1); SODIUM 138 mmol/L (136-145); UREA NITROGEN 10 mg/dL (7-18); eGFR NON AFRICAN AMERICAN > 90 mL/min (90-120)
[2019-06-21 16:49] LABS: GLUCOSE 107 mg/dL (74-106)
[~2019-06-22] VITALS: Ht 152.4 cm; Wt 91.2 kg
[~2019-06-22 05:53] MED LIST changes: +HYDROCHLOROTH12.5 M1 PO; +TORADOL10 MG PO; +ZOFRAN8 MG PO
[2019-06-22 06:15] VITALS: BP 121/79; Ht 152.4 cm; Wt 91.2 kg
[2019-06-22] MEDS ORDERED: HYDROCODON-ACE1 EA10 PO (07:37)
--- NOTE | 2019-06-22 09:16 | NUR ---
DISCHARGED HOME VIA WHEELCHAIR TO PRIVATE VEHICLE WITH SPOUSE
--- NOTE | 2019-06-22 09:27 | NUR ---
DISCHARGED HOME VIA WHEELCHAIR TO PRIVATE VEHICLE WITH SPOUSE
--- NOTE | 2019-06-22 09:41 | OP ---
PATIENT NAME: CINTHIA MORALES MEDICAL RECORD: [id number] :72 LOCATION:[facility] ADMISSION DATE: SURGEON: EDER KRISHNA MD DATE OF OPERATION: 06/22/2019 PREOPERATIVE DIAGNOSIS: Carpal tunnel syndrome of the right wrist. POSTOPERATIVE DIAGNOSIS: Carpal tunnel syndrome of the right wrist. PROCEDURE: Carpal tunnel release. SURGEON: Eder Krishna MD ANESTHESIA: General. INTRAOPERATIVE COMPLICATIONS: None. SUMMARY OF PATHOLOGIC FINDINGS: She had a very tight transverse carpal ligament consistent with preoperative diagnosis, EMGs and NCVs. OPERATIVE SUMMARY IN DETAIL: After obtaining the appropriate preoperative orthopedic surgery consent as well as anesthetic consultation, evaluation and clearance, the patient was brought to the operating room and placed on the operating table in a supine position. After adequate general laryngeal mask airway was administered, tourniquet was placed about the proximal aspect of the right upper extremity. Right upper extremity was then prepped and draped in routine sterile fashion. Arm was elevated and exsanguinated, tourniquet was inflated to 250 mmHg. At this time, the appropriate time-out was taken including the appropriate patient identifiers, medications, and it was agreed upon by all in the operative suite. At this point, midline incision was made in line with the fourth metacarpal. This was gradually taken down to the level of the distal aspect. The transverse carpal ligament was identified and incised. [place] elevator was then placed over the median nerve and protected throughout the remainder of the case. Transverse carpal ligament was then incised in its entirety to the proximal wrist crease under direct visualization. Having completed this, the wound was irrigated and closed with 4-0 Prolene in mattress style fashion. The area was locally infiltrated with 0.25% Marcaine plain. Sterile dressings were applied. Tourniquet was deflated. The patient was awakened and taken to recovery in stable condition. All final needle and sponge counts were correct. TRANSINT:[id number] Voice Confirmation ID: [id number] DOCUMENT ID: [id number] EDER KRISHNA MD at 0941 CC: [id number] DICTATION DATE: 06/22/19740 MANAGER MECHANICAL MAINTENANCE: 06/22/19 08[id number] [place] [address]
== END 2019-06-22 09:27 | disposition home or self-care (01) ==
LOC: D.OPS 05:53 → D.PAN 07:30 → D.OPS 07:30 → D.PAN 08:30 → D.OPS 09:27
PROVIDERS: Anesthesiology; ATTEND Orthopaedic Surgery
DX: G56.01 Carpal tunnel syndrome, right upper limb (principal); Z01.812 Encounter for preprocedural laboratory examination

== ENCOUNTER 2019-11-15 22:15 | Emergency (ER) | payer OTHER ==
[~2019-11-15] VITALS: Ht 152.4 cm; Wt 88.6 kg
[~2019-11-15 22:15] MED LIST changes: +HYDROCODON-ACE1 EA10 PO
[2019-11-15 22:24] VITALS: BP 134/77; Ht 152.4 cm; Wt 88.6 kg
[2019-11-15] MEDS ORDERED: CLEOCIN HCL300 MG PO (23:30)
[2019-11-15] MEDS ORDERED: DIFLUCAN150 MG PO (23:30)
[2019-11-15] MEDS ORDERED: KEFLEX500 MG PO (23:30)
[2019-11-15] MEDS ORDERED: EC-NAPROSYN500 MG PO (23:32)
== END 2019-11-15 23:38 | disposition home or self-care (01) ==
LOC: D.ER 22:15
DX: N76.0 Acute vaginitis (principal); K21.9 Gastro-esophageal reflux disease without esophagitis

== ENCOUNTER 2019-12-20 05:36 | Day surgery (SDC) | payer OTHER ==
[2019-12-19 14:27] LABS: HEMATOCRIT 44.4 % (36.0-48.0); HEMOGLOBIN 14.7 g/dL (12-16); MCH 28.3 pg (26.0-34.0); MCHC 33.1 g/dL (31.0-37.0); MCV 85.4 fL (80.0-100.0); RBC 5.2 10x6/uL (4.00-5.40); RDW 14.2 % (11.5-14.5); WBC 9.6 10x3/uL (4.8-10.8)
[2019-12-19 14:49] LABS: CALC OSMOLALITY 283 mosm/kg (275-300); CALCIUM 9.1 mg/dL (8.5-10.1); CARBON DIOXIDE 32.2 mmol/L (21.0-32.0); CHLORIDE - SERUM 102 mmol/L (98-107); CREATININE - SERUM 0.7 mg/dL (0.6-1.3); GLUCOSE 98 mg/dL (74-106); POTASSIUM - SERUM 3.8 mmol/L (3.5-5.1); SODIUM 142 mmol/L (136-145); UREA NITROGEN 15 mg/dL (7-18); eGFR NON AFRICAN AMERICAN > 90 mL/min (90-120)
[~2019-12-20] VITALS: Ht 152.4 cm; Wt 92.1 kg
[~2019-12-20 05:36] MED LIST changes: +CLEOCIN HCL300 MG PO; +DIFLUCAN150 MG PO; +EC-NAPROSYN500 MG PO; +KEFLEX500 MG PO
[2019-12-20 06:27] VITALS: BP 127/78; Ht 152.4 cm; Wt 92.1 kg
[2019-12-20] MEDS ORDERED: HYDROCODON-ACE1 EAC7 PO (08:58)
[2019-12-20] MEDS ORDERED: SMZ-TMP DS TABL1 TAB PO (09:03)
[2019-12-20] MEDS ORDERED: LEVOFLOXACIN500 MG PO (09:03)
--- NOTE | 2019-12-20 09:54 | NUR ---
0952-REC'D FROM RR. VSS. STERI STRIPS TO JOEL CDI. REPORTS PAIN 4/10 DESCRIBES SORE. REVIEWED DISCHARGE CRITERIA. CL IN EASY REACH. TOLERATING ICE WATER
--- NOTE | 2019-12-20 11:01 | NUR ---
1015-FULL LIQUID TRAY TO ROOM. STERI STRIPS CDI. CONTINUE TO REPORT SORENESS TO ABD. 03/01. VSS.
--- NOTE | 2019-12-20 11:02 | NUR ---
1037-REMOVED IV WITH CATH INTACT,DISPOSED INTO SHARPS,COVERED SITE WITH COTTON BALL AND BANDAID. TOLERATED FOOD TRAY. DENIES NAUSEA AND NO VOMITING. REVIEWED POST OPERATIVE INSTRUCTIONS AND FOLLOW UP VERBALIZED UNDERSTANDING.
--- NOTE | 2019-12-20 11:03 | NUR ---
1056-DRESSED AND READY TO GO HOME. ESCORTED OUT VIA W/C BY VOLUNTEER WITH SPOUSE AWAITING TO DRIVE HOME.
== END 2019-12-20 10:56 | disposition home or self-care (01) ==
LOC: D.OPS 05:36 → D.PAN 08:00 → D.OPS 08:00
PROVIDERS: Anesthesiology; ATTEND Surgery
DX: K81.1 Chronic cholecystitis (principal); R10.11 Right upper quadrant pain; E66.01 Morbid (severe) obesity due to excess calories; Z68.39 Body mass index [BMI] 39.0-39.9, adult; K21.9 Gastro-esophageal reflux disease without esophagitis; I10 Essential (primary) hypertension; Z87.442 Personal history of urinary calculi; Z97.8 Presence of other specified devices

== ENCOUNTER 2020-07-27 12:36 | Emergency (ER) | payer OTHER ==
[~2020-07-27] VITALS: Ht 152.4 cm; Wt 80.9 kg
[~2020-07-27 12:36] MED LIST changes: +HYDROCODON-ACE1 EAC7 PO; +LEVOFLOXACIN500 MG PO; +SMZ-TMP DS TABL1 TAB PO
[2020-07-27 12:42] VITALS: Ht 152.4 cm; Wt 80.9 kg
[2020-07-27] MEDS ORDERED: VOLTAREN75 MG PO (13:20)
[2020-07-27] MEDS ORDERED: CLEOCIN HCL300 MG PO (13:20)
[2020-07-27 13:47] VITALS: BP 124/60
== END 2020-07-27 13:47 | disposition home or self-care (01) ==
LOC: D.ER 12:36
DX: S91.202A Unspecified open wound of left great toe with damage to nail, initial encounter (principal); M25.562 Pain in left knee; S99.922A Unspecified injury of left foot, initial encounter; W19.XXXA Unspecified fall, initial encounter; Y93.9 Activity, unspecified; Y92.9 Unspecified place or not applicable